=== PATIENT | female | born 1970 | race Caucasian/White ===

== ENCOUNTER 2018-02-02 12:45 | Emergency (ER) | payer OTHER ==
[~2018-02-02] VITALS: Ht 157.5 cm; Wt 71.2 kg
[2018-02-02] MEDS ORDERED: ibuprofen tablet 400 MG TABLET PO ONE (13:55)
[2018-02-02] MEDS ORDERED: LIDOcaine 1.5% w/epinephrine 1:200,000 5ml ampul IJ ONE (13:55)
[2018-02-02] MEDS ORDERED: SULF1TAB49 PO (14:13)
[2018-02-02 14:42] VITALS: BP 143/88
== END 2018-02-02 14:43 | disposition home or self-care (01) ==
LOC: ER 12:46
DX: L02.31 Cutaneous abscess of buttock (principal); L03.317 Cellulitis of buttock
CPT/HCPCS: 10060; 99283; A6449; J3490